=== PATIENT | male | born 1955 | race Caucasian/White ===

== ENCOUNTER → 2017-12-14 | Outpatient (CLI) | payer BC ==
[~2017-12-14] MED LIST: CRESTOR5 MG PO; LEXAPRO20 MG PO; PREDNISONE20 MG PO; XANAX .25M0.25 MG/TA PO
== END ==
LOC: COL.RAD 07:48
DX: N18.1 Chronic kidney disease, stage 1 (principal)

== ENCOUNTER → 2018-01-16 | Outpatient (CLI) | payer BC | LOC: COL.RAD 07:02 | DX: R10.9 Unspecified abdominal pain (principal) | CPT/HCPCS: Q9967 ==